=== PATIENT | male | born 1970 | race Two or more races ===

== ENCOUNTER 2023-11-13 08:44 | Outpatient (REF) | payer MEDICARE, SELFPAY | END 2023-11-13 08:45 | disposition home or self-care (01) | LOC: HO.LAB 08:44 | PROVIDERS: Visit Provider Psychiatry & Neurology Psychiatry | DX: Z13.89 Encounter for screening for other disorder (principal) ==

== ENCOUNTER → 2023-11-20 09:30 | Outpatient (BNV) | payer MEDICARE, MEDICAID, SELFPAY | PROVIDERS: Visit Provider Psychiatry & Neurology Psychiatry | DX: F39 Unspecified mood [affective] disorder (principal); F63.89 Other impulse disorders; F43.10 Post-traumatic stress disorder, unspecified; F11.21 Opioid dependence, in remission | CPT/HCPCS: 90792; 99213 ==

== ENCOUNTER 2023-11-27 09:00 | Outpatient (RCR) | payer MEDICARE, MEDICAID, SELFPAY ==
[2023-11-10 10:51] VITALS: BP 109/74; PULSE 72; TEMP 36.7
[2023-11-10 10:54] VITALS: BMI 18.0
--- NOTE | 2023-11-10 15:29 | HO.PHP ---
PHP staff member followed up with Baldemar after group three, to explore how he feeling program is going so far. Baldemar stated good. PHP staff member informed him that she is aware that he was not comfortable answering the questions today but that is a group we do every day and he will need to engage moving forward since he is in a higher level of care and we need to assess safety. Baldemar was receptive. PHP staff assessed safety. Baldemar reported no concerns around SI,plan or intent.
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
--- NOTE | 2023-11-11 15:07 | HO.PHP ---
PHP staff member met with Baldemar during the third group due to him leaving the group tearful. PHP staff member explored what triggered that response. Baldemar noted that he received a message that he is unable to see his children on a weekly and they shifted it to every two weeks. Baldemar was tearful and disclosed that he is doing everything that [facility] is asking him to do. PHP staff member assessed with Baldemar what he plans on doing with that new information. Baldemar disclosed he is just going to go home. PHP staff member was receptive. Baldemar talked about his children and was feeling hopeless. Badlemar then noted that he is going to [facility] after this to see his daughter. PHP staff member asked Baldemar if he feels he would be able to control his emotions while there. Baldemar noted that he is not going to do anything and expressed that he wants to work on getting his children back. PHP staff member was receptive and encouraged him to further discuss this in tomorrows group so he can work on focusing on what brought him to the program. Baldemar was receptive. PHP staff member also informed him that he cannot be engaging in conversation around traumatic events and going into details because it could be triggering for individuals in the group. PHP staff member stated if he continues to go into detail then staff members will redirect him and remind him to focus on the here and now. Baldemar was in agreement. PHP staff member lastly did a safety check for SI and HI. None were reported and he stated he will be safe and at the program tomorrow.
--- NOTE | 2023-11-11 15:16 | HO.PHP ---
PHP staff member met with Baldemar after community meeting due to him making a comment around his goal, which was he is going to work on not reacting negatively towards DCF. PHP staff member further assessed if he plans on acting on his statement. Baldemar denied and noted he has no plans or intent to act on his statement, in which he noted he was simply venting because that is something he wants to improve on. PHP Staff member was receptive.
[2023-11-11 15:26] LABS: Amphetamine Screen Urine Not Detected (Not Detect); Barbiturates, Urine Not Detected (Not Detect); Benzodiazepines Screen Urine Not Detected (Not Detect); Cannabinoid Screen Urine POSITIVE (Not Detect); Cocaine Screen Urine Not Detected (Not Detect); Fentanyl, urine Not Detected (Not Detect); Opiate Screen Urine Not Detected (Not Detect); Phencyclidine Screen Urine Not Detected (Not Detect)
--- NOTE | 2023-11-12 14:49 | HO.PHP ---
The client's case was reviewed and opened in treatment team.
--- NOTE | 2023-11-12 16:30 | PC.NURSE ---
Patient has an appointment for MAT on 11/19/23 at 2:00 pm with the [facility] [address], [address] at [facility]. Office Number [phone].
--- NOTE | 2023-11-12 17:33 | HO.PHP ---
[facility] administrative staff, Babita, received a phone call from Baldemar noting that he just woke up due to the new medication causing him to oversleep. Baldemar shared that he has a headache. Baldemar reported no safety concerns and will be in attendance to program tomorrow.
--- NOTE | 2023-11-20 12:45 | HO.PHPPROGNO ---
Subjective Subjective Date of Service: 11/20/23 Reason For Visit: PTSD,anxiety,depression,cannabis use Interim History: Patient reports experiencing increased frequency of headaches, on background of migraine hx since starting on the risperidone and mirtazapine. He continues at 1/2 tablets of both mirtazapine (@7.5 mg) and risperidone (@0.5 mg) qhs. Headache, back of head, lasting all day (at baseline they are intermittent). Feels more groggy earlier in the day, improves over course of day. He reports some improvements noting irritability and anger have lessened. Aggressive ideation, not having that much anymore . No HI. Reports his mood as a bit more mellowed out . Still feeling depressed. Poor appetite persists. Denies any SI. Today, he presented with dower affect and less withdrawn, moments of brightening and easier to engage with. Medication Compliance: Yes Side effects from medications: Yes (as noted above) Attending Groups: Yes Review of Systems Acute medical concerns: No Mental Status Exam Mental Status Exam Narrative: Alert, oriented, in no acute distress. Slightly disheveled, casually dressed. Grooming fair.? Normal gait, no tics/tremors/dyskinesia, no psychomotor agitation or neurovegetative retardation. Calm, withdrawn, guarded, superifically cooperative.? Poor eye contact. Mood is depressed. Affect blunted.? Speech is reduced flow, normal rate, low volume, low prosody. No latency or pressured speech. Thought process is circumstantial, some paucity without illogicality or FOI/JACE. Thought content relevant to stressors, no delusional content elicited.? No gross evidence of psychosis. No thoughts of harming self or others. Cognition with remote and scattered memory impairment..= Sensorium clear. Insight fair. Judgment fair but adequate. Diagnostics Vital Signs (24Hr): BMI result Body Mass Index 18.0 Assessment & Plan Assessment & Plan (1) Mood disorder: Status: Acute Code(s): F39 - Unspecified mood [affective] disorder (2) Other impulse disorders: Status: Acute Code(s): F63.89 - Other impulse disorders Assessment and Plan: r/o intermittent explosive disorder (3) Post-traumatic stress disorder, unspecified: Status: Acute Code(s): F43.10 - Post-traumatic stress disorder, unspecified (4) Opioid use disorder, severe, in early remission, dependence: Status: Acute Code(s): F11.21 - Opioid dependence, in remission Plan agrees with plan to hold risperidone tonight, taking mirtazapine 7.5 mg then holding the mirtazapine on Thursday, and taking risperidone 0.5 mg Thursday he will continue on tolerable medication and agrees to increase dose to 1 tablet Patient educated on: diagnosis, medication risk/benefits and substance abuse Informed Consent: understands Reason for contiued partial hosp. stay Substantial Risk for: inability to function, rapid decompensation and med/psych decompensation Certification I certify that partial hospital treatment is medically necessary due to the symptoms and problems resulting from the patient's mental illness and the failure to treat the patient at the partial hospital level of care would likely result in the patient requiring inpatient psychiatric care which could not be prevented at a less intensive level of care. Total time managing care of this patient today _30___ minutes. Discharge Plan Discharge Attending provider: Ashley Beard Additional Instructions: Appointment on 11/19/23 at 2:00 pm with the [facility] [address] [place] [address], [address] at [facility]. Office Number [phone]. Medications: New mirtazapine 15 mg tablet See Rx Instructions .ROUTE .COMPLEX Qty: 20 0RF Rx Instructions: take 1/2 tablet daily at bedtime for one week, then increase dose to one tablet daily at bedtime risperidone 1 mg tablet See Rx Instructions .ROUTE .COMPLEX Qty: 14 0RF Rx Instructions: take 1/2 tablet daily at bedtime for one week, then increase dose to 1 tablet daily at bedtime Stand Alone Forms: Patient Portal Discharge page
--- NOTE | 2023-11-24 14:19 | HO.PHP ---
[facility] staff member met with Baldemar after group three due to the comment he made around wanting to kill someone. [facility] staff member went to further assess the statement, in which Badlemar responded negatively disclosing he doesn't want to further discuss this, he said what he needed to say and processed what he needed to within the group. [facility] staff tried to explain to Baldemar why we have to assess for HI but Baldemar continued to become amplified expressing that the staff member is pissing him off. Baldemar walked away and would not further engage with the [facility] staff member. [facility] staff member did address with [facility] staff member, Belgica, in which she disclosed that she spoke with him regarding this as well and he had no plan or intent they were just thoughts. [facility] staff member was receptive. This was also further reviewed with the configuration management manager, Laxmi, due to his negative response and how he is presenting in groups.
--- NOTE | 2023-11-25 16:46 | HO.PHP ---
Locomotive Inspector called Chaz's contact number at 2:00 to check-in after pt left group abruptly at 10 am, and asked to be excused for the day without elaborating other then to identify as safe. Pt did not respond but returned this manual writer's call at 4:30 stating something came up that he had to handle, pt did not elaborate. Pt asked if it was something bad or concerning, he said no but it was a private matter. Pt checked-in as safe and stated he will be back tomorrow morning for groups.
--- NOTE | 2023-11-27 10:52 | PC.NURSE ---
Chaz called [facility] for a new PCP in my office and left them his information on their New patient appointment line. He is awaiting a call back for an appointment.
--- NOTE | 2023-11-27 15:03 | HO.PHP ---
[facility] staff member faxed a referral for Med management to [facility] in [place]. Vijaya contacted with the appointments. Baldemar is scheduled for an intake appointment on December 02, 2023 at 10 AM with Sophia Shelton. The med provider appointment will be held on December 23, 2023 at 9 AM with Gee Hahn. Both appointments are in person at [address] [place] [address]. [facility] staff contacted Baldemar and provided him with those appointment days and times. Baldemar was receptive.
--- NOTE | 2023-11-27 19:06 | P.PNPSP_ITS ---
Subjective Subjective Date of Service: 11/27/23 Reason For Visit: PTSD,anxiety,depression,cannabis use Interim History: Patient seen for follow-up, anticipating discharge today. No acute issues or concerns. Social workers given him contacts for setting up referral for outpatient treaters which he is pleased about. Clinician attempted to reach facility to make an appointment. Intake appointment on 12/02 at 10am, provider appointment on 12/23 at 9am. He reports that he stopped taking barbi risperidone because he figured out that this was the medication causing him side effects. He has continued on the mirtazapine, he has been sleeping and eating well, is less irritable, still depressed but not worse and has been managing better. He would like to further increase dose and follow up with new provider. He endorses some transient passive SI, he denies any intention or plan to harm self or others, he denies, HI, AH, VH. Medication Compliance: Yes Side effects from medications: Yes (as noted above) Attending Groups: Yes Review of Systems Acute medical concerns: No Mental Status Exam Mental Status Exam Narrative: Alert, oriented, in no acute distress. Slightly disheveled, casually dressed. Grooming fair.? Normal gait, no tics/tremors/dyskinesia, no psychomotor agitation or neurovegetative retardation. Calm, withdrawn, guarded, superficially cooperative.? Poor eye contact. Mood is depressed. Affect blunted.? Speech is reduced flow, normal rate, low volume, low prosody. No latency or pressured speech. Mood still depressed but stable. Denies any thougts of harmig self or others. Affect more variable. Thought process is circumstantial, some paucity without illogicality or FOI/JACE. Thought content relevant to stressors, no delusional content elicited.? No gross evidence of psychosis. No thoughts of harming self or others. Cognition with remote and sc attered memory impairment. Sensorium clear. Insight fair. Judgment fair but adequate. Diagnostics Vital Signs (24Hr): BMI result Body Mass Index 18.0 Assessment & Plan Assessment & Plan (1) Mood disorder: Status: Acute Code(s): F39 - Unspecified mood [affective] disorder (2) Other impulse disorders: Status: Acute Code(s): F63.89 - Other impulse disorders (3) Post-traumatic stress disorder, unspecified: Status: Acute Code(s): F43.10 - Post-traumatic stress disorder, unspecified (4) Opioid use disorder, severe, in early remission, dependence: Status: Acute Code(s): F11.21 - Opioid dependence, in remission Plan Discharge from [facility] continue mirtazapine at 30 mg qhs continue naltrexone 50 mg qhs risperidone was poorly tolerated, was discontinued will defer to outpatient provider for further medication management routine lab work order given on admission including LFTs, HIV, Hep B, C status, RPR, vitamin B 12 level - patient did not get lab work done Patient educated on: diagnosis, medication risk/benefits and substance abuse Informed Consent: understands Reason for contiued partial hosp. stay Substantial Risk for: stable for discharge Certification I certify that partial hospital treatment is medically necessary due to the symptoms and problems resulting from the patient's mental illness and the failure to treat the patient at the partial hospital level of care would likely result in the patient requiring inpatient psychiatric care which could not be prevented at a less intensive level of care. Total time managing care of this patient today __30__ minutes. Discharge Plan Discharge Attending provider: Ashley Beard Additional Instructions: Appointment on 11/19/23 at 2:00 pm with the [facility] [address], [address] at [facility]. Office Number [phone]. PCP: [address] Call for appointment [phone]. Walk in Clinic. Med Management: Intake appointment will be on December 02, 2023 at 10 AM with Sophia Shelton. The med provider appointment will be held on December 23, 2023 at 9 AM with Gee Hahn. Both appointments are in person at [address] [place] [address]. OP therapist: Sara Austin, November 27, 2023 at 3 PM. Medications: New mirtazapine 30 mg tablet 30 mg PO BEDTIME 30 Days Qty: 30 0RF naltrexone 50 mg tablet 50 mg PO BEDTIME Qty: 30 0RF Stand Alone Forms: Patient Portal Discharge page Patient Education: Mood Disorders (DC)
== END 2023-11-27 23:59 | disposition home or self-care (01) ==
LOC: HO.PHPA 09:00
PROVIDERS: Visit Provider Psychiatry & Neurology Psychiatry
DX: F39 Unspecified mood [affective] disorder (principal); F63.89 Other impulse disorders; F43.10 Post-traumatic stress disorder, unspecified; F11.21 Opioid dependence, in remission; Z79.899 Other long term (current) drug therapy
CPT/HCPCS: 80307; 90791; 90853

== ENCOUNTER 2023-12-15 22:35 | Emergency (ER) | payer MEDICARE, MEDICAID, SELFPAY ==
--- NOTE | 2023-12-15 | ECG_ITS ---
Test Reason : OVERDOSE Blood Pressure : / mmHG Vent. Rate : 093 BPM Atrial Rate : 093 BPM P-R Int : 148 ms QRS Dur : 086 ms QT Int : 334 ms P-R-T Axes : 055 012 034 degrees QTc Int : 415 ms Normal sinus rhythm Normal ECG No previous ECGs available Referred By: Generic ED Physician Electronically Signed By:Arnaldo Smith
[2023-12-15 23:09] VITALS: BP 140/90; PULSE 98; O2SAT 98; BMI 19.6
[2023-12-15 23:19] VITALS: BP 112/79; PULSE 107; RESP 22; TEMP 36.8; O2SAT 90
--- NOTE | 2023-12-16 00:26 | ED.GENADULT ---
HPI - General Adult General Chief complaint: Overdose Stated complaint: HEROINE OD, 4MG NARCAN GIVEN Time Seen by Provider: 12/15/23 22:54 Source: patient, RN notes reviewed and old records reviewed Mode of arrival: EMS Limitations: no limitations History of Present Illness HPI narrative: 53-year-old male presents for evaluation after an accidental drug overdose. Patient admits to snorting a half bag of heroin He reports that up until last year he was clean since 2002 He states that he ?had a slip of 1 year ago and then again today. ? He is not suicidal and did not intentionally overdose Patient was found by his significant other face down in the bathroom He responded to Narcan 4 mg intranasally by police. Patient complains of back pain and a mild right-sided headache Denies any shortness of breath or chest pain Related Data Previous Rx's Medication Instructions Recorded mirtazapine 30 mg tablet 30 mg PO BEDTIME 30 days #30 tabs 11/27/23 naltrexone 50 mg tablet 50 mg PO BEDTIME #30 tabs 11/27/23 Allergies Allergy/AdvReac Type Severity Reaction Status Date / Time pineapple Allergy Hives Verified 11/10/23 10:58 Review of Systems Constitutional: Constitutional: Denies chills, Denies frequent falls and Reports headache(s) Eyes: Eyes: Denies blurry vision ENT: Reports headache(s) and Denies sore throat Cardiovascular: Cardiovascular: Denies chest pain and Denies dyspnea Respiratory: Respiratory: Denies cough and Denies dyspnea Gastrointestinal: Gastrointestinal: Denies abdominal pain, Denies nausea and Denies vomiting Musculoskeletal: Musculoskeletal: Reports back pain Integumentary/Breasts: Skin/Breast: Denies rash Neurologic: Denies frequent falls and Reports headache(s) [facility] Past Medical History Medical History (Updated 12/16/23 @ 00:29 by Nabil Mota) Inguinal hernia Hepatitis C Social History Social History Household Members: Spouse and Friend(s) Cigarettes Per Day: 10 Advance Directives: No Advance Directives Information Provided: No Physical Exam ED Vital Signs: Vital Signs - 24 hr 12/15/23 23:19 Temperature 98.2 F Pulse Rate 107 H Respiratory Rate 22 H Blood Pressure 112/79 Pulse Oximetry 90 L Oxygen Delivery Method Room Air BMI result Body Mass Index 19.6 Const General: healthy appearing, comfortable, no acute distress, alert and awake Nutritional Appearance: well nourished Orientation/consciousness: patient oriented x3 [facility] Head: Yes normocephalic and Yes atraumatic Eyes Eyelids: Yes eyelids normal Conjunctivae: conjunctivae normal Sclerae: sclerae normal Corneas: corneas normal Pupils: Equal, round and reactive pupils present EOM: EOMs intact bilaterally Neck Neck: No no meningeal signs and No anterior neck swelling Resp Effort & Inspection: normal respiratory effort, able to speak in complete sentences, no audible wheezes and not labored Auscultation: clear to auscultation bilaterally GI Inspection: No distended Palpation (GI): Soft to palpation, not firm, nontender, no guarding and not rigid Back/Spine/Pelvis Other: Mild lumbar vertebral tenderness without step-offs or deformities. Cervical Spine: No Cervical spine tenderness Skin General skin exam: elasticity normal Neuro General: patient oriented x3 and No no meningeal signs Cranial nerves: Yes CN's II-XII intact bilaterally, Yes Equal, round and reactive pupils present and Yes Bilaterally intact EOM present Cognition (Neuro): normal cognition Extrem Other: Moving all extremities well without any obvious deformities Medical Decision Making Medical Decision Making MDM Narrative: 53-year-old male presents for evaluation after an accidental overdose. He admits to snorting half bags of heroin. He complains of back pain and headache. He has no neuro deficits. I have a low suspicion for traumatic brain injury. He is awake alert and oriented. I recommended we get a CT scan of his brain and C-spine after his unwitnessed fall as well as x-rays of his lower back where his pain is. The patient declines this stating ?I can not stay any longer, I have to go to work. I explained to the patient that I could not rule out any traumatic injuries without 100% certainty without imaging. The patient reports he understands this and still wishes to decline the imaging. He understands that if he has a head injury that is not properly diagnosed and treated could lead to his ultimate . The patient still refuses imaging at this time. He refuses take home Narcan as well as substance abuse consult. The patient has been the ER for just under 2 hours and remains awake, alert and oriented. He is stable for discharge at this time Differential Diagnosis Differential Diagnoses: The differential diagnosis associated with the presentation includes Accidental overdose Substance abuse Syncope less likely Vertebral fracture Intracranial hemorrhage Discharge Plan Discharge Clinical Impression: Accidental overdose Patient Disposition: Home, Self-Care Instructions: Adult Overdose (ED) Additional Instructions: You declined all imaging today. If you have persistent headache, neck pain or back pain, return to the ER for imaging Follow-up with your primary doctor Prescriptions: No Action mirtazapine 30 mg tablet 30 mg PO BEDTIME 30 Days Qty: 30 0RF naltrexone 50 mg tablet 50 mg PO BEDTIME Qty: 30 0RF
== END 2023-12-16 00:58 | disposition home or self-care (01) ==
PROVIDERS: Emergency Provider Internal Medicine
DX: T40.1X1A Poisoning by heroin, accidental (unintentional), initial encounter (principal); M54.50 Low back pain, unspecified; R51.9 Headache, unspecified; Y92.9 Unspecified place or not applicable
CPT/HCPCS: 93005; 99285

== ENCOUNTER → 2023-12-15 23:37 | Outpatient (BNV) | payer MEDICARE, MEDICAID, SELFPAY | PROVIDERS: Emergency Provider Internal Medicine; Visit Provider Internal Medicine Cardiovascular Disease | DX: R41.82 Altered mental status, unspecified (principal) | CPT/HCPCS: 93010 ==